=== PATIENT | male | born 1985 | race Caucasian/White ===

== ENCOUNTER 2016-12-28 08:12 | Emergency (ER) | payer OTHER ==
[~2016-12-28] VITALS: Ht 200.7 cm; Wt 97.7 kg
[2016-12-28 08:17] VITALS: BP 138/97; PULSE 102; RESP 18; O2SAT 99
--- NOTE | 2016-12-28 08:43 | ED.REPORT ---
HPI-Overdose/Alcohol Toxicity Date of Service Dec 28, 2016 ED Provider: Ron Alexander MD Patient is a 31 year old male who presents to the ED for medical clearance to [facility] for alcohol abuse (binging behaviors) onset 12 years ago. Associated symptoms include restlessness. He last drank EtOH last night. He was given Valium at [place] last night. He has tried to go through detox several times before. He has not had seizures from alcohol withdrawal but does get tremors. He denies fever, chills, or any other symptoms. Nursing Notes Stated Complaint: ALCOHOL DEPENDENCY Chief Complaint: Substance Abuse Nursing Notes Reviewed: Yes ([employer], [id number] not reconciled) Allergies: Coded Allergies: No Known Allergies (Unverified Allergy, Unknown, 04/09/14) Scheduled PRN Lorazepam (Lorazepam) 2 Mg Tablet 2 MG PO DIRECTED PRN PRN Withdrawal Symptoms Take 1 tab every 6 hours for 4 doses, then one half tab every 6 hours for 8 doses, then one half tab every 12 hours for 2 doses General Time Seen by Provider: 08:43 Chief Complaint Other (Medical clearance ) Hx Obtained From: Patient Arrived By: Walk-in Risk-Overdose/Alcohol Tox )( Suicide Risk Stratification : Alcohol useNo: Substance abuse RF Statements: Risk factors reviewed Past Medical History Past Medical History marfan syndrome Enlarged aorta Reports: Depression Past Surgical History Throat cyst removal Incision on neck of bladder for urinary retention Smoking History Current Every Day Smoker Social History EtOH abuse Drug Use: Denies drug use Other Social History: Good social support Ambulatory Status Independent Review of Systems +EtOH abuse Constitutional: Denies: Chills, Fever Psychiatric: Denies: Hallucinations, auditory, Hallucinations, visual, Suicidal ideation Complete sys rev & neg: except as marked. Physical Exam Initial Vital Signs Vital Signs (First) Date Time Temp Pulse Resp B/P Pulse Ox O2 Delivery O2 Flow Rate FiO2 12/28/16 08:17 36.2 102 18 138/97 99 Initial VS: Reviewed, Vital signs abnormal (HR 102) Head / Eyes: Atraumatic, Normocephalic General/Constitutional: Awake, Alert, Well developed Smells of EtOH Thin, tall - consistent with Marfan's Respiratory / Chest: Breath sounds NL, Breath sounds = bilat, No respiratory distress Heart Rate / Rhythm: Positive: Tachycardia (low grade ) Trace murmur Abdomen: Soft, Non-tender Neurologic: Oriented X3, Speech NL No tremors Psychiatric: Affect NL, Mood NL, No hallucinations Skin: Warm, Dry No diaphoresis Lower Extremity / Pelvis / MS: No edema Re-Eval/Medical Decision Med Decision/Clinical Course This is a 31-year-old male presents requesting assistance with alcohol detox. He reports he is referred in by crisis respite. He has no previous hospitalizations. He has no prior history of seizures, but does get tremulous if he stops drinking. He reports he drinks mainly impinging-and can go days without drinking-he reports he is drinking extremely heavily over the past 3-4 days and he feels somewhat anxious. Medical problems and has no additional complaints. He denies any commitment drug use. He is a smoker. On exam he appears in very mild withdrawal. But otherwise appears normal. He is mentating normally. U tox is negative. Patient received a dose of lorazepam in the department. He has been seen by the [facility]. This been accepted for crisis respite/sobering services this evening he will be discharged there in a taper of lorazepam. Source of Hx: Old records Re-Evaluation/Progress : Time of Eval: 14:18 )( Re-Eval Psychiatric: No danger to self, No danger to others, No suicidal ideation, No homicidal ideation, Clear for alcohol rehab Re-Evaluation/Progress Note: Discussed plan to for discharge to Crisis. Patient understands and agrees with plan. All questions addressed at this time. Differential Diagnosis: Positive: Alcohol abuse, Negative: Bipolar disorder, Depression, Homicidal, Overdose, benzodiazapine, Overdose, other Counseled Regarding: Diagnosis, Need for follow-up, When/why to return to ED Discharge & Departure Impression: Primary Impression: Alcohol abuse )( Condition at Discharge: No danger to self, No danger to others Disposition: Home Discharge Condition All VS Reviewed: Yes Condition: Improved Additional Instructions: 1. Go directly to sobering services/crisis respite. 2. A taper of the medication lorazepam has been prescribed to help prevent withdrawal. 3. If you need a primary care provider, follow up with Dr. Wiseman. 4. Return if new or worsening symptoms Referrals: OTHER,PHYSICIAN (PCP) Scribe Attestation Portions of this note were transcribed by Joseph Fox. I, Dr. Alexander personally performed the history, physical exam and medical decision-making; I reviewed and confirmed the accuracy of the information in the transcribed note. Signed by: Joseph Fox 12/28/16, 1419 Ron Alexander MD Dec 28, 2016 08:43 JOSEPH FOX Dec 28, 2016 08:49
[2016-12-28] MEDS ORDERED: LORazepam 2 mg Tablet PO ONE ×2 (09:00→16:30)
[2016-12-28 09:59] VITALS: BP 123/78; PULSE 89; RESP 16; O2SAT 99
[2016-12-28] MEDS ORDERED: LORA2TAB PO (14:05)
[2016-12-28 15:28] VITALS: BP 135/91; PULSE 84; RESP 16; O2SAT 97
[2016-12-28 17:17] VITALS: BP 135/88; PULSE 112; RESP 18; O2SAT 97
[2016-12-28 18:23] VITALS: BP 135/88; PULSE 112; RESP 18; O2SAT 97
== END 2016-12-28 18:24 | disposition home or self-care (01) ==
LOC: SED 08:12
DX: F10.129 Alcohol abuse with intoxication, unspecified (principal); F17.200 Nicotine dependence, unspecified, uncomplicated